=== PATIENT | male | born 1995 | race Caucasian/White ===

== ENCOUNTER 2016-11-08 23:44 | Emergency (ER) | payer SELFPAY ==
--- NOTE | 2016-11-09 00:44 | PDOC ---
History of Present Illness - General History Source: Patient Exam Limitations: No Limitations - History of Present Illness Initial Comments: 11/09/16 02:44 Patient is a 20 year old male with a past medical history of constipation who presents to the ED with complaints of diffuse abdominal pain beginning 6 days ago. Patient reports pain has been constant since last tuesday with increasing intensity with every passing day. He reports the abdominal pain is a nonradiating sharp pain, 10/10 intensity, stating abdominal pain is the worse he has ever experienced. Patient states multiple episodes of diarrhea since last tuesday, with about 2-3 episodes per day. He reports intermittent nausea, sweating, and dizziness secondary to the abdominal pain. Denies blood in stool. Denies headache, SOB. Denies vomiting, fever. Denies out of country travel. Denies Social history: Family history; HTN, diabetes. <Marito Dawson - Last Filed: 11/09/16 05:29> <Ezio Delgadillo - Last Filed: 11/09/16 06:04> - General Stated Complaint: ABDOMINAL PAIN Time Seen by Provider: 11/09/16 00:43 Past History <Marito Dawson - Last Filed: 11/09/16 05:29> - Psycho/Social/Smoking Cessation Hx Anxiety: No Suicidal Ideation: No Smoking History: Never smoked Hx Alcohol Use: No Substance Use Type: None <Ezio Delgadillo - Last Filed: 11/09/16 06:04> - Past Medical History Allergies/Adverse Reactions: Allergies Allergy/AdvReac Type Severity Reaction Status Date / Time No Known Allergies Allergy Verified 11/09/16 00:48 Home Medications: Ambulatory Orders Sennosides [Senna-Gen] 8.6 mg PO BID #20 tablet 09/26/14 Amoxicillin/Potassium Clav [Augmentin 875-125 Tablet] 1 each PO BID #20 tablet 11/09/16 Ondansetron [Zofran *Odt*] 8 mg SL TID #30 od.tablet 11/09/16 Oxycodone HCl/Acetaminophen [Percocet 5-325 mg Tablet] 1 - 2 tab PO Q4H #20 tablet MDD 6 11/09/16 Review of Systems - Review of Systems Able to Perform ROS?: Yes Comments:: 11/09/16 02:45 GENERAL/CONSTITUTIONAL: No fever or chills. No weakness. HEAD, EYES, EARS, NOSE AND THROAT: No change in vision. No ear pain or discharge. No sore throat. CARDIOVASCULAR: No chest pain or shortness of breath. RESPIRATORY: No cough, wheezing, or hemoptysis. GASTROINTESTINAL: + Nausea. + Diarrhea. No vomiting, constipation. GENITOURINARY: No dysuria, frequency, or change in urination. MUSCULOSKELETAL: +Diffuse Abdominal pain No joint or muscle swelling or pain. No neck or back pain. SKIN: No rash NEUROLOGIC: No headache, vertigo, loss of consciousness, or change in strength/ sensation. ENDOCRINE: No increased thirst. No abnormal weight change. HEMATOLOGIC/LYMPHATIC: No anemia, easy bleeding, or history of blood clots. ALLERGIC/IMMUNOLOGIC: No hives or skin allergy. All Other Systems: Reviewed and Negative <Marito Dawson - Last Filed: 11/09/16 05:29> *Physical Exam - Vital Signs Last Vital Signs Temp Pulse Resp BP Pulse Ox 98.6 F 90 14 157/101 100 11/09/16 00:49 11/09/16 00:49 11/09/16 00:49 11/09/16 00:49 11/09/16 00:49 - Physical Exam Comments: 11/09/16 02:45 GENERAL: Awake, alert, and fully oriented, in no acute distress HEAD: No signs of trauma EYES: PERRLA, EOMI, sclera anicteric, conjunctiva clear ENT: Auricles normal inspection, hearing grossly normal, nares patent, oropharynx clear without exudates. Moist mucosa NECK: Normal ROM, supple, no lymphadenopathy, JVD, or masses LUNGS: Breath sounds equal, clear to auscultation bilaterally. No wheezes, and no crackles HEART: Regular rate and rhythm, normal S1 and S2, no murmurs, rubs or gallops ABDOMEN: + Left upper quadrant pain. + Left lower quadrant pain. + Left lower quadrant tender to palpation. + Left upper quadrant tender to palpation. Soft, normoactive bowel sounds. No guarding, no rebound. No masses EXTREMITIES: Normal range of motion, no edema. No clubbing or cyanosis. No cords, erythema, or tenderness NEUROLOGICAL: Cranial nerves II through XII grossly intact. Normal speech, normal gait SKIN: Warm, Dry, normal turgor, no rashes or lesions noted. <EuniceMarito - Last Filed: 11/09/16 05:29> ED Treatment Course - LABORATORY CBC & Chemistry Diagram: 11/09/16 02:15 11/09/16 02:15 - ADDITIONAL ORDERS Additional order review: 11/09/16 02:15 RBC 4.74 MCV 85.7 MCHC 33.0 RDW 13.9 MPV 10.5 Neutrophils % 60.0 Lymphocytes % 29.3 Monocytes % 7.6 Eosinophils % 2.0 Basophils % 1.1 - RADIOLOGY Radiograph Interpretation: 11/09/16 05:29 CT abdomen and pelvis with contrast Impression: Questionable mesenteric adenitis Read by : Samuel Leon MD. <EuniceMarito - Last Filed: 11/09/16 05:29> - LABORATORY CBC & Chemistry Diagram: 11/09/16 02:15 11/09/16 02:15 <Ezio Delgadillo - Last Filed: 11/09/16 06:04> *DC/Admit/Observation/Transfer - Attestations Scribe Attestion: 11/09/16 02:46 Documentation prepared by Marito Dawsno, acting as director medical affairs for Ezio Delgadillo MD. <Marito Dawson - Last Filed: 11/09/16 05:29> - Discharge Dispostion Admit: No - Attestations Physician Attestion: 11/09/16 00:45 I, Dr. Ezio Delgadillo, attest that this document has been prepared under my direction and personally reviewed by me in its entirety. I further attest, that it accurately reflects all work, treatment, procedures and medical decision -making performed by me. <Ezio Delgadillo - Last Filed: 11/09/16 06:04> Diagnosis at time of Disposition: Mesenteric adenitis - Discharge Dispostion Disposition: HOME Condition at time of disposition: Unchanged/Unknown - Prescriptions Prescriptions: Amoxicillin/Potassium Clav [Augmentin 875-125 Tablet] 1 each PO BID #20 tablet Oxycodone HCl/Acetaminophen [Percocet 5-325 mg Tablet] 1 - 2 tab PO Q4H #20 tablet MDD 6 Ondansetron [Zofran *Odt*] 8 mg SL TID #30 od.tablet - Patient Instructions Printed Discharge Instructions: DI for Mesenteric Adenitis-Adult Additional Instructions: Mr Zaragoza- Sorry that this hurts so much. YOu need to be on antibiotics for ten days.... but you should feel better in two or three days. Use the Percocet for pain and the Zofran ODT for nausea Follow up with your doctor later this week Return to us if worse. Hope you feel better soon- Best- Dr. Ezio Delgadillo
[2016-11-09 00:59] VITALS: BP 157/101; PULSE 90; TEMP 98.6; BMI 48.5
[2016-11-09] MEDS ORDERED: ONDANSETRON 4 MG/2 ML VIAL IVPB ONE (01:43)
[2016-11-09] MEDS ORDERED: KETOROLAC TROMETHAMINE 30 MG/1 ML VIAL IVPUSH ONE (01:43)
[2016-11-09 02:41] LABS: BASOPHIL 1.1 % (0-2.0); MCH 28.3 pg (25.7-33.7); MEAN CELL VOLUME 85.7 fl (80-96); MEAN PLT VOLUME 10.5 fl (7.5-11.1); PLATELET COUNT 160 K/MM3 (134-434); RDW 13.9 % (11.9-15.9); WHITE BLOOD COUNT 11.3 K/mm3 (4.0-10.0)
[2016-11-09] MEDS ORDERED: KETOROLAC TROMETHAMINE 30 MG/1 ML VIAL ONE (02:41)
[2016-11-09] MEDS ORDERED: ONDANSETRON 4 MG/2 ML VIAL ONE (02:41)
[2016-11-09 02:51] LABS: INR 1.11 (0.82-1.09); PROTHROMBIN TIME (PATIENT) 12.2 SEC (9.98-11.88)
[2016-11-09 03:00] LABS: ALBUMIN 3.7 g/dl (3.4-5.0); ANION GAP 8 (8-16); CALCIUM 8.9 mg/dL (8.5-10.1); CO2 29 mmol/L (21-32); CREATININE 0.9 mg/dL (0.7-1.3); GLUCOSE,RANDOM 104 mg/dL (74-106); SGOT/AST 17 U/L (15-37); SGPT/ALT 43 U/L (12-78)
[2016-11-09 03:02] LABS: ALK PHOS 54 U/L (45-117); BILIRUBIN,TOTAL 0.4 mg/dL (0.2-1.0); TOT PROT 6.9 g/dl (6.4-8.2)
[2016-11-09 03:27] LABS: URINE APPEARANCE SLCLOUDY; URINE BILIRUBIN NEGATIVE (NEGATIVE); URINE BLOOD NEGATIVE (NEGATIVE); URINE COLOR YELLOW; URINE GLUCOSE (UA) NEGATIVE (NEGATIVE); URINE KETONE NEGATIVE (NEGATIVE); URINE LEUK ESTERASE TRACE (NEGATIVE); URINE NITRITE NEGATIVE (NEGATIVE); URINE PROTEIN NEGATIVE (NEGATIVE); URINE UROBILINOGEN NEGATIVE mg/dL (0.2-1.0)
[2016-11-09 03:29] LABS: URINE MUCUS RARE; URINE RBC <1 /hpf (0-3); URINE WBC 11 /hpf (3-5)
== END 2016-11-09 06:53 | disposition home or self-care (01) ==
LOC: JER 23:44
PROC: 3E033NZ Introduction of Analgesics, Hypnotics, Sedatives into Peripheral Vein, Percutaneous Approach (ICD-10-PCS; principal; 2016-11-08)
PROC: 3E0333Z Introduction of Anti-inflammatory into Peripheral Vein, Percutaneous Approach (ICD-10-PCS; 2016-11-08)
DX: I88.0 Nonspecific mesenteric lymphadenitis (principal)
CPT/HCPCS: 36415; 74177-TC; 80053; 81003; 81015; 83690; 85025; 85610; 99283-25

== ENCOUNTER 2016-12-18 14:19 | Emergency (ER) | payer SELFPAY ==
[2016-12-18 14:42] VITALS: BP 134/74; PULSE 81; TEMP 98.4; BMI 45.3
[2016-12-18] MEDS ORDERED: ONDANSETRON *ODT* 4 MG TABLET SL ONE (16:05)
[2016-12-18] MEDS ORDERED: ONDANSETRON *ODT* 4 MG TABLET ONE (16:07)
--- NOTE | 2016-12-18 16:28 | PDOC ---
History of Present Illness - General Chief Complaint: Cold Symptoms Stated Complaint: HEADACHE Time Seen by Provider: 12/18/16 15:29 History Source: Patient Exam Limitations: No Limitations - History of Present Illness Initial Comments: 12/18/16 16:19 21 yr male with c/o body aches and nasal congestion headache for one week, no fever. Pt states his daughter had same symptoms last week. no neck pain or diff swallowing or eating. immunizatios are UTD. Pt works as a room service waiter/waitress. Past History - Past Medical History Allergies/Adverse Reactions: Allergies Allergy/AdvReac Type Severity Reaction Status Date / Time No Known Allergies Allergy Verified 12/18/16 14:42 Home Medications: Ambulatory Orders Amoxicillin/Potassium Clav [Augmentin 875-125 Tablet] 1 each PO BID #20 tablet 12/18/16 Fluticasone Prop 0.05% Nasal [Flonase -] 1 - 2 spray NS DAILY #1 spray.pump Naproxen [Naprosyn -] 500 mg PO BID PRN #14 tablet 12/18/16 GI Disorders: Yes (Constipation) - Suicide/Smoking/Psychosocial Hx Smoking History: Never smoked Have you smoked in the past 12 months: No Information on smoking cessation initiated: No Hx Alcohol Use: No Drug/Substance Use Hx: No Substance Use Type: None *Physical Exam - Vital Signs Last Vital Signs Temp Pulse Resp BP Pulse Ox 98.4 F 81 18 134/74 100 12/18/16 14:39 12/18/16 14:39 12/18/16 14:39 12/18/16 14:39 12/18/16 14:39 - Physical Exam General Appearance: Yes: Nourished, Appropriately Dressed HEENT: positive: EOMI, JOSHUA, Normal ENT Inspection, TMs Normal, Pharynx Normal, Nasal Congestion, Other (sinus tenderness ) Neck: positive: Supple. negative: Tender, Lymphadenopathy (R), Lymphadenopathy (L), Rigidity, Tender lateral, Tender midline Respiratory/Chest: positive: Lungs Clear, Normal Breath Sounds Cardiovascular: positive: Regular Rhythm, Regular Rate Gastrointestinal/Abdominal: positive: Normal Bowel Sounds, Soft Lymphatic: negative: Adenopathy Musculoskeletal: positive: Normal Inspection Extremity: positive: Normal Capillary Refill, Normal Inspection, Normal Range of Motion Integumentary: positive: Normal Color, Dry, Warm Neurologic: positive: Fully Oriented, Alert, Normal Mood/Affect, Normal Response , Motor Strength 07/09 ED Treatment Course - Medications Given in the ED: ED Medications Discontinued Medications Generic Name Dose Route Start Last Admin Trade Name Kristen PRN Reason Stop Dose Admin Ondansetron HCl 4 mg 12/18/16 16:05 12/18/16 16:10 Zofran Odt - SL 12/18/16 16:06 4 mg ONCE ONE Administration Medical Decision Making - Medical Decision Making 12/18/16 16:53 cc: body aches chills, headache sinus congestion non toxic neg nuchal rigidity neg cervical spine tenderness, neg photphobia will give zofran for nasuea tylenol for headache and CT sinuses 12/18/16 20:28 pt is feeling better asking to eat. ct results are pending. no fever repeat temp is normal BP 129/76 HR 76 resting comfortably. 12/18/16 21:02 *DC/Admit/Observation/Transfer Diagnosis at time of Disposition: Sinusitis Qualifiers: Sinusitis location: maxillary Chronicity: acute Recurrence: recurrent Qualified Code(s): J01.01 - Acute recurrent maxillary sinusitis; J01.01 - Acute recurrent maxillary sinusitis - Discharge Dispostion Disposition: HOME Condition at time of disposition: Good - Prescriptions Prescriptions: Amoxicillin/Potassium Clav [Augmentin 875-125 Tablet] 1 each PO BID #20 tablet Fluticasone Prop 0.05% Nasal [Flonase -] 1 - 2 spray NS DAILY #1 spray.pump Naproxen [Naprosyn -] 500 mg PO BID PRN #14 tablet PRN Reason: Pain - Referrals Referrals: Olivier Ruiz MD [Staff Physician] - - Patient Instructions Additional Instructions: take Augmentin as directed for 10 days flonase as directed please drink pleanty of water and rest at home follow with the ENT next week for follow up take naprosyn for headache as needed if any worsening symptoms RETURN TO ER right away
[2016-12-18] MEDS ORDERED: ACETAMINOPHEN 500 MG TABLET (FP) PO ONE (16:49)
[2016-12-18] MEDS ORDERED: ACETAMINOPHEN 500 MG TABLET (FP) ONE (16:51)
[2016-12-18] MEDS ORDERED: NAPROXEN 500 MG TABLET (FP) PO ONE (19:45)
[2016-12-18] MEDS ORDERED: NAPROXEN 500 MG TABLET (FP) ONE (19:58)
--- NOTE | 2016-12-20 09:45 | PDOC ---
Patient Follow-up (Call Back) - Post ED Follow - Up Condition at time of discharge: Good Disposition at time of original discharge: HOME - Disposition Additional Instructions/Notes: Radiology has called me in regards to the patient's CAT scan of her sinuses. There is a questionable suspicious concern for her to be reevaluated for a possible MRI with some suggestive inflammation at the pituitary sites. Difficult to see but should have a non emergent follow up with MRI Called pt at designated home phone and left message to call back for instructions.
== END 2016-12-18 21:27 | disposition home or self-care (01) ==
LOC: JERFT 14:19
DX: J01.01 Acute recurrent maxillary sinusitis (principal)
CPT/HCPCS: 70486-TC; 87804; 99281-25